=== PATIENT | male | born 1990 | race Caucasian/White ===

== ENCOUNTER 2017-10-13 15:12 | Emergency (ER) | payer MEDICAID ==
[~2017-10-13] VITALS: Ht 175.3 cm; Wt 81.8 kg
[~2017-10-13 15:12] MED LIST: ATARAX 10MG10 MG/TAB PO; ATARAX 25MG25 MG/TAB PO; BENADRYL25 M2 PO; BENZOTROPINE PO; CEPHALEXIN500 M1 PO; COGENTIN .0.5 MG/TAB PO; COGENTIN 1MG1 MG/TAB PO; DESYREL 50MG50 MG PO; HALDOL .5M0.5 MG/TAB IM; HALDOL 5MG T5 MG/TAB PO; K-DUR 10 MEQ T10 MEQ PO; K-DUR20 MEQ PO; LATUDA20 MG PO; MELATONIN1 MG PO; NO HOME MEDICATIONS; SEROQUEL XR150 MG PO; ZYPREXA 5MG5 MG PO
[2017-10-13 15:13] VITALS: BP 131/85; TEMP 98.7
[2017-10-13] MEDS ORDERED: HALDOL DEC100 MG/1 M IM (15:16)
[2017-10-13] MEDS ORDERED: ABILIFY 15MG TA15 MG PO (15:18)
[2017-10-13 16:47] VITALS: PULSE 84
== END 2017-10-13 16:48 | disposition home or self-care (01) ==
LOC: COL.ER 15:12
DX: H92.03 Otalgia, bilateral (principal); F20.0 Paranoid schizophrenia; F90.9 Attention-deficit hyperactivity disorder, unspecified type; F84.5 Asperger's syndrome; F17.210 Nicotine dependence, cigarettes, uncomplicated

== ENCOUNTER 2017-10-24 10:33 | Emergency (ER) | payer MEDICAID ==
[~2017-10-24] VITALS: Ht 175.3 cm; Wt 71.8 kg
[~2017-10-24 10:33] MED LIST changes: +ABILIFY 15MG TA15 MG PO; +HALDOL DEC100 MG/1 M IM
[2017-10-24 10:38] VITALS: BP 126/87; TEMP 97
[2017-10-24 11:24] VITALS: PULSE 76
== END 2017-10-24 11:16 | disposition home or self-care (01) ==
LOC: COL.ER 10:33
DX: K62.89 Other specified diseases of anus and rectum (principal); F20.9 Schizophrenia, unspecified; F84.5 Asperger's syndrome; F90.9 Attention-deficit hyperactivity disorder, unspecified type

== ENCOUNTER 2017-11-03 17:15 | Emergency (ER) | payer MEDICAID ==
[~2017-11-03] VITALS: Ht 180.3 cm; Wt 70.5 kg
[2017-11-03 17:21] VITALS: BP 105/77; PULSE 89; TEMP 98.6
[2017-11-03] MEDS ORDERED: AMOXICILLIN 50500 MG PO (17:48)
== END 2017-11-03 18:10 | disposition home or self-care (01) ==
LOC: COL.ER 17:15
DX: J34.89 Other specified disorders of nose and nasal sinuses (principal)

== ENCOUNTER 2017-11-05 16:32 | Emergency (ER) | payer MEDICAID ==
[~2017-11-05 16:32] MED LIST changes: +AMOXICILLIN 50500 MG PO
[2017-11-05 17:24] VITALS: BP 128/75; PULSE 68; TEMP 98
== END 2017-11-05 17:27 | disposition home or self-care (01) ==
LOC: COL.ER 16:32
DX: F15.10 Other stimulant abuse, uncomplicated (principal); F29 Unspecified psychosis not due to a substance or known physiological condition; F20.9 Schizophrenia, unspecified; R09.89 Other specified symptoms and signs involving the circulatory and respiratory systems

== ENCOUNTER 2017-11-09 11:20 | Emergency (ER) | payer MEDICAID ==
[~2017-11-09] VITALS: Ht 175.3 cm; Wt 70.9 kg
[2017-11-09 13:57] VITALS: BP 137/80; PULSE 66; TEMP 97.8
== END 2017-11-09 13:45 | disposition home or self-care (01) ==
LOC: COL.ER 11:20
DX: M25.571 Pain in right ankle and joints of right foot (principal); F20.9 Schizophrenia, unspecified; X58.XXXA Exposure to other specified factors, initial encounter

== ENCOUNTER 2017-11-14 14:02 | Emergency (ER) | payer MEDICAID ==
[~2017-11-14] VITALS: Ht 175.3 cm; Wt 70.9 kg
[2017-11-14 14:33] LABS: COLLECTION METHOD CLEAN CATCH
[2017-11-14 14:46] LABS: BASO # 0.1 (0.0-0.2); BASO % 0.8 % (0.0-2.0); EOS # 0.2 (0.0-0.7); GRAN # 5.7 (1.4-6.5); GRAN % 59.7 % (42.2-75.2); HEMATOCRIT 44.7 % (42.0-52.0); HEMOGLOBIN 15.1 g/dl (13.5-18.0); LYMPH # 2.6 (1.2-3.4); LYMPH % 26.9 % (20.0-51.0); MEAN CELL VOLUME 84 fl (80.0-100.0); MEAN CORPUSCULAR HEMOGLOBIN 28 pg (27.0-31.0); MEAN CORPUSCULAR HGB CONC 34 g/dl (33.0-37.0); MEAN PLATELET VOLUME 10.3 fl (7.4-10.4); MONO % 10.3 % (1.7-9.3); PLATELET COUNT 229 K/mm3 (130-400); RED BLOOD COUNT 5.31 M/mm3 (4.20-5.60); REDCELL DISTRIBUTION WIDTH-CV 12.9 % (11.5-14.5)
[2017-11-14 14:50] LABS: BUDDING YEAST Present /hpf; PH 7 (5-8); SQUAMOUS EPITHELIAL None Seen /hpf; URINE APPEARANCE Cloudy; URINE BACTERIA None Seen /hpf; URINE BILIRUBIN Negative (NEGATIVE); URINE BLOOD Negative (NEGATIVE); URINE COLOR Yellow; URINE GLUCOSE Negative (NEGATIVE); URINE KETONE Negative (NEGATIVE); URINE LEUKOCYTE ESTERASE Negative (NEGATIVE); URINE NITRATE Negative (NEGATIVE); URINE PROTEIN(semi-quant) Negative (NEGATIVE); URINE RBC 0-2 /hpf; URINE UROBILINOGEN >=4.0 mg/dL (NEGATIVE)
[2017-11-14 14:52] LABS: TRICYCLIC ANTIDEPRESS URINE NEGATIVE
[2017-11-14 15:05] LABS: ALANINE AMINOTRANSFERASE 39 U/L (21-72); ALBUMIN 4.5 gm/dL (3.5-5.0); ALKALINE PHOSPHATASE 98 U/L (50-136); ANION GAP 12 mmol/L (7-16); AST,SGOT 30 U/L (15-37); BILIRUBIN,TOTAL 1.3 mg/dL (0.0-1.0); BLOOD UREA NITROGEN 12 mg/dL (9-20); CALCIUM 9.2 mg/dL (8.4-10.2); CARBON DIOXIDE 27 mmol/L (22-30); CHLORIDE 104 mmol/L (98-107); CREATININE, serum 0.83 mg/dL (0.66-1.25); GLUCOSE 100 mg/dL (74-106); POTASSIUM 3.4 mmol/L (3.4-5.0); SODIUM 144 mmol/L (137-145); TOTAL PROTEIN 7.4 gm/dL (6.4-8.2)
[2017-11-14 15:12] LABS: ACETAMINOPHEN < 10 ug/mL (10-30); ALCOHOL(ethanol),MEDICAL < 10 mg/dL; SALICYLATE < 1.0 mg/dL
[2017-11-15 19:17] VITALS: BP 132/62; PULSE 86; TEMP 97.8
== END 2017-11-15 18:55 ==
LOC: COL.ER 14:02
PROVIDERS: Nurse Practitioner
DX: F41.9 Anxiety disorder, unspecified (principal); F20.9 Schizophrenia, unspecified; F84.5 Asperger's syndrome; F12.90 Cannabis use, unspecified, uncomplicated; F17.210 Nicotine dependence, cigarettes, uncomplicated

== ENCOUNTER 2018-04-04 14:58 | Emergency (ER) | payer MEDICAID ==
[~2018-04-04] VITALS: Ht 172.7 cm; Wt 69.5 kg
[2018-04-04 15:01] VITALS: BP 125/76; PULSE 100; TEMP 98.4
[2018-04-04 15:38] LABS: COLLECTION METHOD CLEAN CATCH
[2018-04-04 15:42] LABS: BASO # 0.1 (0.0-0.2); BASO % 0.6 % (0.0-2.0); EOS # 0.2 (0.0-0.7); EOS % 1.9 % (0-4.0); GRAN # 4.9 (1.4-6.5); GRAN % 56.6 % (42.2-75.2); HEMATOCRIT 43.7 % (42.0-52.0); HEMOGLOBIN 15.1 g/dl (13.5-18.0); LYMPH # 2.7 (1.2-3.4); MEAN CELL VOLUME 82 fl (80.0-100.0); MEAN CORPUSCULAR HEMOGLOBIN 28 pg (27.0-31.0); MEAN CORPUSCULAR HGB CONC 35 g/dl (33.0-37.0); MEAN PLATELET VOLUME 9.7 fl (7.4-10.4); MONO # 0.8 (0.1-0.6); MONO % 9.4 % (1.7-9.3); PLATELET COUNT 191 K/mm3 (130-400); RED BLOOD COUNT 5.31 M/mm3 (4.20-5.60); REDCELL DISTRIBUTION WIDTH-CV 12.4 % (11.5-14.5)
[2018-04-04 15:44] LABS: MUCOUS Present /lpf; PH 5 (5-8); SQUAMOUS EPITHELIAL None Seen /hpf; URINE APPEARANCE Clear; URINE BACTERIA None Seen /hpf; URINE BILIRUBIN Negative (NEGATIVE); URINE BLOOD Negative (NEGATIVE); URINE COLOR Yellow; URINE GLUCOSE Negative (NEGATIVE); URINE KETONE Negative (NEGATIVE); URINE LEUKOCYTE ESTERASE Negative (NEGATIVE); URINE NITRATE Negative (NEGATIVE); URINE PROTEIN(semi-quant) Negative (NEGATIVE); URINE RBC 0-2 /hpf; URINE UROBILINOGEN Negative (NEGATIVE)
[2018-04-04 15:55] LABS: ALANINE AMINOTRANSFERASE 22 U/L (21-72); ALBUMIN 4.5 gm/dL (3.5-5.0); ALKALINE PHOSPHATASE 74 U/L (50-136); ANION GAP 11 mmol/L (7-16); AST,SGOT 17 U/L (15-37); BLOOD UREA NITROGEN 8 mg/dL (9-20); CALCIUM 9.1 mg/dL (8.4-10.2); CARBON DIOXIDE 29 mmol/L (22-30); CHLORIDE 99 mmol/L (98-107); CREATININE, serum 0.81 mg/dL (0.66-1.25); GLUCOSE 91 mg/dL (74-106); POTASSIUM 3.1 mmol/L (3.4-5.0); SODIUM 139 mmol/L (137-145); TOTAL PROTEIN 7.4 gm/dL (6.4-8.2)
[2018-04-04 16:01] LABS: ACETAMINOPHEN < 10 ug/mL (10-30); ALCOHOL(ethanol),MEDICAL < 10 mg/dL; SALICYLATE < 1.0 mg/dL
[2018-04-04 16:03] LABS: TRICYCLIC ANTIDEPRESS URINE NEGATIVE
== END 2018-04-04 18:10 | disposition home or self-care (01) ==
LOC: COL.ER 14:58
PROVIDERS: Emergency Medicine
DX: F22 Delusional disorders (principal); F15.10 Other stimulant abuse, uncomplicated

== ENCOUNTER 2018-05-21 16:02 | Emergency (ER) | payer MEDICAID ==
[~2018-05-21] VITALS: Ht 172.7 cm; Wt 69.5 kg
[2018-05-21 17:04] LABS: COLLECTION METHOD CLEAN CATCH
[2018-05-21 17:13] LABS: GRANULAR CAST >12 /lpf; HYALINE CAST >12 /lpf; MUCOUS Present /lpf; PH 5 (5-8); SQUAMOUS EPITHELIAL 0-2 /hpf; URINE APPEARANCE Clear; URINE BACTERIA None Seen /hpf; URINE BILIRUBIN Negative (NEGATIVE); URINE BLOOD Negative (NEGATIVE); URINE COLOR Amber; URINE GLUCOSE Negative (NEGATIVE); URINE KETONE Negative (NEGATIVE); URINE LEUKOCYTE ESTERASE Negative (NEGATIVE); URINE NITRATE Negative (NEGATIVE); URINE PROTEIN(semi-quant) Negative (NEGATIVE); URINE RBC 0-2 /hpf
[2018-05-21 17:17] LABS: TRICYCLIC ANTIDEPRESS URINE NEGATIVE
[2018-05-21 17:24] LABS: BASO # 0.1 (0.0-0.2); BASO % 0.4 % (0.0-2.0); EOS # 0.2 (0.0-0.7); EOS % 1.4 % (0-4.0); GRAN # 9.5 (1.4-6.5); GRAN % 68.7 % (42.2-75.2); HEMATOCRIT 46.4 % (42.0-52.0); LYMPH # 2.7 (1.2-3.4); LYMPH % 19.3 % (20.0-51.0); MEAN CELL VOLUME 82 fl (80.0-100.0); MEAN CORPUSCULAR HEMOGLOBIN 28 pg (27.0-31.0); MEAN CORPUSCULAR HGB CONC 35 g/dl (33.0-37.0); MEAN PLATELET VOLUME 10.1 fl (7.4-10.4); MONO # 1.3 (0.1-0.6); MONO % 9.1 % (1.7-9.3); PLATELET COUNT 209 K/mm3 (130-400); RED BLOOD COUNT 5.63 M/mm3 (4.20-5.60); REDCELL DISTRIBUTION WIDTH-CV 12.9 % (11.5-14.5)
[2018-05-21 17:35] LABS: ALANINE AMINOTRANSFERASE 36 U/L (21-72); ALBUMIN 4.5 gm/dL (3.5-5.0); ALKALINE PHOSPHATASE 87 U/L (50-136); ANION GAP 13 mmol/L (7-16); AST,SGOT 24 U/L (15-37); BILIRUBIN,TOTAL 1.8 mg/dL (0.0-1.0); BLOOD UREA NITROGEN 20 mg/dL (9-20); CALCIUM 9.4 mg/dL (8.4-10.2); CARBON DIOXIDE 25 mmol/L (22-30); CHLORIDE 100 mmol/L (98-107); CREATININE, serum 1.07 mg/dL (0.66-1.25); GLUCOSE 82 mg/dL (74-106); POTASSIUM 3.8 mmol/L (3.4-5.0); SODIUM 138 mmol/L (137-145); TOTAL PROTEIN 7.5 gm/dL (6.4-8.2)
[2018-05-21 17:46] LABS: ACETAMINOPHEN < 10 ug/mL (10-30); ALCOHOL(ethanol),MEDICAL < 10 mg/dL; SALICYLATE < 1.0 mg/dL
[2018-05-21] MEDS ORDERED: ZYPREXA2.5 MG PO (22:50)
[2018-05-21] MEDS ORDERED: TEGRETOL 1100 MG/TAB PO (22:50)
[2018-05-22 15:56] VITALS: TEMP 97.9
[2018-05-22 17:52] VITALS: BP 99/60; PULSE 90
== END 2018-05-22 17:52 ==
LOC: COL.ER 16:02
PROVIDERS: Emergency Medicine
DX: F20.9 Schizophrenia, unspecified (principal); F15.10 Other stimulant abuse, uncomplicated; L55.9 Sunburn, unspecified; F90.9 Attention-deficit hyperactivity disorder, unspecified type; F17.210 Nicotine dependence, cigarettes, uncomplicated

== ENCOUNTER 2018-07-19 00:51 | Emergency (ER) | payer MEDICAID ==
[~2018-07-19] VITALS: Ht 172.7 cm; Wt 72.7 kg
[~2018-07-19 00:51] MED LIST changes: +TEGRETOL 1100 MG/TAB PO; +ZYPREXA2.5 MG PO
[2018-07-19 00:56] VITALS: TEMP 98.5
[2018-07-19] MEDS ORDERED: ZYPREXA20 MG PO ×2 (01:04)
[2018-07-19] MEDS ORDERED: TRILEPTAL 150M150 MG PO (01:05)
[2018-07-19] MEDS ORDERED: ZYPREXA10 MG PO (01:06)
[2018-07-19] MEDS ORDERED: BENADRYL25 M2 PO (01:07)
[2018-07-19] MEDS ORDERED: REVIA 50MG TABL50 MG PO (01:08)
[2018-07-19 01:29] LABS: COLLECTION METHOD CLEAN CATCH
[2018-07-19 01:30] LABS: BASO # 0.1 (0.0-0.2); BASO % 0.5 % (0.0-2.0); EOS # 0.1 (0.0-0.7); EOS % 0.8 % (0-4.0); GRAN # 10.1 (1.4-6.5); GRAN % 76.3 % (42.2-75.2); HEMATOCRIT 49.2 % (42.0-52.0); HEMOGLOBIN 17.1 g/dl (13.5-18.0); LYMPH % 14.8 % (20.0-51.0); MEAN CELL VOLUME 82 fl (80.0-100.0); MEAN CORPUSCULAR HEMOGLOBIN 29 pg (27.0-31.0); MEAN CORPUSCULAR HGB CONC 35 g/dl (33.0-37.0); MEAN PLATELET VOLUME 9.8 fl (7.4-10.4); MONO # 0.9 (0.1-0.6); MONO % 6.8 % (1.7-9.3); PLATELET COUNT 224 K/mm3 (130-400); RED BLOOD COUNT 5.98 M/mm3 (4.20-5.60); REDCELL DISTRIBUTION WIDTH-CV 12.2 % (11.5-14.5)
[2018-07-19 01:39] LABS: MUCOUS Present /lpf; PH 5 (5-8); SQUAMOUS EPITHELIAL None Seen /hpf; URINE APPEARANCE Hazy; URINE BACTERIA None Seen /hpf; URINE BILIRUBIN Negative (NEGATIVE); URINE BLOOD Negative (NEGATIVE); URINE COLOR Amber; URINE GLUCOSE Negative (NEGATIVE); URINE KETONE Trace (NEGATIVE); URINE LEUKOCYTE ESTERASE Negative (NEGATIVE); URINE NITRATE Negative (NEGATIVE); URINE PROTEIN(semi-quant) 1+ (NEGATIVE)
[2018-07-19 01:48] LABS: ALBUMIN 4.9 gm/dL (3.5-5.0); BILIRUBIN,TOTAL 1.6 mg/dL (0.0-1.0); CALCIUM 10.1 mg/dL (8.4-10.2); CREATININE, serum 0.86 mg/dL (0.66-1.25); POTASSIUM 3.7 mmol/L (3.4-5.0); TOTAL PROTEIN 8.4 gm/dL (6.4-8.2)
[2018-07-19 01:49] LABS: C-REACTIVE PROTEIN 0.5 mg/dL (0.0-0.9)
[2018-07-19 04:33] VITALS: BP 94/67; PULSE 87
== END 2018-07-19 04:33 | disposition home or self-care (01) ==
LOC: COL.ER 00:51
PROVIDERS: Physician Assistant
DX: K59.00 Constipation, unspecified (principal); K31.84 Gastroparesis; F17.210 Nicotine dependence, cigarettes, uncomplicated; F90.9 Attention-deficit hyperactivity disorder, unspecified type; F84.5 Asperger's syndrome; F25.9 Schizoaffective disorder, unspecified
CPT/HCPCS: Q9967

== ENCOUNTER 2018-08-04 23:03 | Emergency (ER) | payer MEDICAID ==
[~2018-08-04] VITALS: Ht 172.7 cm; Wt 70.9 kg
[~2018-08-04 23:03] MED LIST changes: +REVIA 50MG TABL50 MG PO; +TRILEPTAL 150M150 MG PO; +ZYPREXA10 MG PO; +ZYPREXA20 MG PO
[2018-08-04 23:37] LABS: COLLECTION METHOD CLEAN CATCH
[2018-08-04 23:40] LABS: BASO % 0.5 % (0.0-2.0); EOS # 0.1 (0.0-0.7); EOS % 1.6 % (0-4.0); GRAN % 58.9 % (42.2-75.2); HEMOGLOBIN 15.7 g/dl (13.5-18.0); LYMPH # 2.6 (1.2-3.4); LYMPH % 30.1 % (20.0-51.0); MEAN CELL VOLUME 83 fl (80.0-100.0); MEAN CORPUSCULAR HEMOGLOBIN 29 pg (27.0-31.0); MEAN CORPUSCULAR HGB CONC 35 g/dl (33.0-37.0); MEAN PLATELET VOLUME 9.8 fl (7.4-10.4); MONO # 0.7 (0.1-0.6); MONO % 8.2 % (1.7-9.3); PLATELET COUNT 199 K/mm3 (130-400); RED BLOOD COUNT 5.44 M/mm3 (4.20-5.60); REDCELL DISTRIBUTION WIDTH-CV 12.2 % (11.5-14.5)
[2018-08-04 23:51] LABS: ALANINE AMINOTRANSFERASE 32 U/L (21-72); ALBUMIN 4.8 gm/dL (3.5-5.0); ALKALINE PHOSPHATASE 79 U/L (50-136); ANION GAP 8 mmol/L (7-16); AST,SGOT 21 U/L (15-37); BILIRUBIN,TOTAL 1.1 mg/dL (0.0-1.0); BLOOD UREA NITROGEN 8 mg/dL (9-20); CALCIUM 9.4 mg/dL (8.4-10.2); CARBON DIOXIDE 31 mmol/L (22-30); CHLORIDE 98 mmol/L (98-107); CREATININE, serum 0.88 mg/dL (0.66-1.25); GLUCOSE 91 mg/dL (74-106); SODIUM 137 mmol/L (137-145); TOTAL PROTEIN 8.1 gm/dL (6.4-8.2)
[2018-08-04 23:52] LABS: TRICYCLIC ANTIDEPRESS URINE NEGATIVE
[2018-08-04 23:53] LABS: ACETAMINOPHEN < 10 ug/mL (10-30); ALCOHOL(ethanol),MEDICAL < 10 mg/dL; POTASSIUM 2.8 mmol/L (3.4-5.0); SALICYLATE < 1.0 mg/dL
[2018-08-04 23:55] LABS: MUCOUS Present /lpf; PH 5 (5-8); SQUAMOUS EPITHELIAL None Seen /hpf; URINE APPEARANCE Clear; URINE BACTERIA None Seen /hpf; URINE BILIRUBIN Negative (NEGATIVE); URINE BLOOD Negative (NEGATIVE); URINE COLOR Yellow; URINE GLUCOSE Negative (NEGATIVE); URINE KETONE Negative (NEGATIVE); URINE LEUKOCYTE ESTERASE Negative (NEGATIVE); URINE NITRATE Negative (NEGATIVE); URINE PROTEIN(semi-quant) Negative (NEGATIVE); URINE RBC 0-2 /hpf; URINE UROBILINOGEN Negative (NEGATIVE)
[2018-08-05 08:30] VITALS: TEMP 97.2
[2018-08-05 19:25] LABS: TRICYCLIC ANTIDEPRESS URINE NEGATIVE
[2018-08-06 11:39] LABS: CALCIUM 9.6 mg/dL (8.4-10.2); CREATININE, serum 0.88 mg/dL (0.66-1.25); POTASSIUM 4.4 mmol/L (3.4-5.0)
[2018-08-06 13:40] VITALS: BP 100/54; PULSE 81
== END 2018-08-06 13:57 ==
LOC: COL.ER 23:03
PROVIDERS: Emergency Medicine
DX: F22 Delusional disorders (principal); F15.10 Other stimulant abuse, uncomplicated

== ENCOUNTER 2018-09-18 15:18 | Emergency (ER) | payer MEDICAID ==
[~2018-09-18] VITALS: Ht 175.3 cm; Wt 68.2 kg
[2018-09-18 16:42] LABS: BASO % 0.4 % (0.0-2.0); GRAN # 7.7 (1.4-6.5); GRAN % 73.4 % (42.2-75.2); HEMATOCRIT 45.3 % (42.0-52.0); HEMOGLOBIN 15.6 g/dl (13.5-18.0); LYMPH # 1.2 (1.2-3.4); MEAN CELL VOLUME 82 fl (80.0-100.0); MEAN CORPUSCULAR HEMOGLOBIN 28 pg (27.0-31.0); MEAN CORPUSCULAR HGB CONC 34 g/dl (33.0-37.0); MEAN PLATELET VOLUME 10.4 fl (7.4-10.4); MONO # 1.5 (0.1-0.6); MONO % 14.7 % (1.7-9.3); PLATELET COUNT 147 K/mm3 (130-400); RED BLOOD COUNT 5.55 M/mm3 (4.20-5.60); REDCELL DISTRIBUTION WIDTH-CV 12.5 % (11.5-14.5)
[2018-09-18 16:44] LABS: COLLECTION METHOD CLEAN CATCH
[2018-09-18 16:54] LABS: MUCOUS Present /lpf; PH 5 (5-8); SQUAMOUS EPITHELIAL 0-2 /hpf; URINE APPEARANCE Hazy; URINE BACTERIA None Seen /hpf; URINE BILIRUBIN Negative (NEGATIVE); URINE BLOOD Negative (NEGATIVE); URINE COLOR Yellow; URINE GLUCOSE Negative (NEGATIVE); URINE KETONE Negative (NEGATIVE); URINE LEUKOCYTE ESTERASE Negative (NEGATIVE); URINE NITRATE Negative (NEGATIVE); URINE PROTEIN(semi-quant) 1+ (NEGATIVE); URINE RBC 0-2 /hpf; URINE UROBILINOGEN Negative (NEGATIVE)
[2018-09-18 16:55] LABS: ACETAMINOPHEN < 10 ug/mL (10-30); ALANINE AMINOTRANSFERASE 22 U/L (21-72); ALBUMIN 4.7 gm/dL (3.5-5.0); ALCOHOL(ethanol),MEDICAL < 10 mg/dL; ALKALINE PHOSPHATASE 82 U/L (50-136); ANION GAP 13 mmol/L (7-16); AST,SGOT 22 U/L (15-37); BILIRUBIN,TOTAL 0.8 mg/dL (0.0-1.0); BLOOD UREA NITROGEN 11 mg/dL (9-20); C-REACTIVE PROTEIN 5.8 mg/dL (0.0-0.9); CALCIUM 9.3 mg/dL (8.4-10.2); CARBON DIOXIDE 25 mmol/L (22-30); CHLORIDE 98 mmol/L (98-107); CREATININE, serum 0.95 mg/dL (0.66-1.25); GLUCOSE 88 mg/dL (74-106); POTASSIUM 3.4 mmol/L (3.4-5.0); SALICYLATE < 1.0 mg/dL; SODIUM 137 mmol/L (137-145); TOTAL PROTEIN 7.8 gm/dL (6.4-8.2)
[2018-09-18 16:58] LABS: CREATINE KINASE 57 U/L (55-170)
[2018-09-18 16:59] LABS: TRICYCLIC ANTIDEPRESS URINE NEGATIVE
[2018-09-18 20:20] VITALS: BP 125/81; PULSE 100; TEMP 98.8
== END 2018-09-18 20:20 | disposition home or self-care (01) ==
LOC: COL.ER 15:18
PROVIDERS: Emergency Medicine
DX: F29 Unspecified psychosis not due to a substance or known physiological condition (principal); F15.10 Other stimulant abuse, uncomplicated; F20.9 Schizophrenia, unspecified
CPT/HCPCS: J7030

== ENCOUNTER 2018-09-22 16:02 | Emergency (ER) | payer MEDICAID ==
[~2018-09-22] VITALS: Ht 175.3 cm; Wt 65.9 kg
[2018-09-22 16:24] VITALS: BP 133/83; PULSE 111; TEMP 98.5
[2018-09-22 17:20] LABS: COLLECTION METHOD CLEAN CATCH
[2018-09-22 17:26] LABS: HEMATOCRIT 46.9 % (42.0-52.0); HEMOGLOBIN 15.7 g/dl (13.5-18.0); MEAN CELL VOLUME 83 fl (80.0-100.0); MEAN CORPUSCULAR HEMOGLOBIN 28 pg (27.0-31.0); MEAN CORPUSCULAR HGB CONC 34 g/dl (33.0-37.0); MEAN PLATELET VOLUME 9.4 fl (7.4-10.4); PLATELET COUNT 230 K/mm3 (130-400); RED BLOOD COUNT 5.67 M/mm3 (4.20-5.60); REDCELL DISTRIBUTION WIDTH-CV 12.3 % (11.5-14.5)
[2018-09-22 17:28] LABS: MUCOUS Present /lpf; PH 5 (5-8); SQUAMOUS EPITHELIAL 0-2 /hpf; URINE APPEARANCE Clear; URINE BACTERIA None Seen /hpf; URINE BILIRUBIN Negative (NEGATIVE); URINE BLOOD Negative (NEGATIVE); URINE COLOR Yellow; URINE GLUCOSE Negative (NEGATIVE); URINE KETONE Negative (NEGATIVE); URINE LEUKOCYTE ESTERASE Negative (NEGATIVE); URINE NITRATE Negative (NEGATIVE); URINE PROTEIN(semi-quant) Negative (NEGATIVE); URINE RBC 0-2 /hpf; URINE UROBILINOGEN Negative (NEGATIVE)
[2018-09-22 17:37] LABS: ALANINE AMINOTRANSFERASE 26 U/L (21-72); ALBUMIN 4.7 gm/dL (3.5-5.0); ALKALINE PHOSPHATASE 72 U/L (50-136); ANION GAP 11 mmol/L (7-16); AST,SGOT 30 U/L (15-37); BLOOD UREA NITROGEN 7 mg/dL (9-20); CALCIUM 9.4 mg/dL (8.4-10.2); CARBON DIOXIDE 31 mmol/L (22-30); CHLORIDE 98 mmol/L (98-107); GLUCOSE 98 mg/dL (74-106); POTASSIUM 3.2 mmol/L (3.4-5.0); SODIUM 140 mmol/L (137-145); TOTAL PROTEIN 8.5 gm/dL (6.4-8.2)
[2018-09-22 17:40] LABS: ACETAMINOPHEN < 10 ug/mL (10-30); ALCOHOL(ethanol),MEDICAL < 10 mg/dL; SALICYLATE < 1.0 mg/dL; TRICYCLIC ANTIDEPRESS URINE NEGATIVE
[2018-09-22 19:07] LABS: BAND 2 % (0-10); LYMPHOCYTE 22 % (20.0-51.0); NEUTROPHILS 67 % (42.0-75.2); PLATELET ESTIMATE NORMAL (NORMAL)
[2018-09-22] MEDS ORDERED: ZOVIRAX400 MG PO (21:23)
== END 2018-09-22 21:49 | disposition home or self-care (01) ==
LOC: COL.ER 16:02
PROVIDERS: Family Medicine
DX: F29 Unspecified psychosis not due to a substance or known physiological condition (principal); F15.10 Other stimulant abuse, uncomplicated; F20.9 Schizophrenia, unspecified; F12.90 Cannabis use, unspecified, uncomplicated; F17.210 Nicotine dependence, cigarettes, uncomplicated; Z91.14 Patient's other noncompliance with medication regimen

== ENCOUNTER 2018-09-26 01:02 | Emergency (ER) | payer MEDICAID ==
[~2018-09-26] VITALS: Ht 175.3 cm; Wt 68.2 kg
[~2018-09-26 01:02] MED LIST changes: +ZOVIRAX400 MG PO
[2018-09-26 01:09] VITALS: TEMP 97.7
[2018-09-26] MEDS ORDERED: AMOXICILLIN 50500 MG PO (01:38)
[2018-09-26 01:58] VITALS: BP 124/86; PULSE 98
[2018-09-26] MEDS ORDERED: AMOXICILLIN875 MG PO (09:55)
== END 2018-09-26 02:05 | disposition home or self-care (01) ==
LOC: COL.ER 01:02
DX: K02.9 Dental caries, unspecified (principal); F41.9 Anxiety disorder, unspecified; F90.9 Attention-deficit hyperactivity disorder, unspecified type; F20.9 Schizophrenia, unspecified; F17.210 Nicotine dependence, cigarettes, uncomplicated

== ENCOUNTER 2018-09-26 09:24 | Emergency (ER) | payer MEDICAID ==
[~2018-09-26] VITALS: Ht 172.7 cm; Wt 66.8 kg
[2018-09-26 09:28] VITALS: BP 142/78; TEMP 97.7
[2018-09-26] MEDS ORDERED: AMOXICILLIN875 MG PO (09:55)
[2018-09-26 10:16] VITALS: PULSE 98
== END 2018-09-26 10:18 | disposition home or self-care (01) ==
LOC: COL.ER 09:24
DX: A41.9 Sepsis, unspecified organism (principal); K08.89 Other specified disorders of teeth and supporting structures; F20.9 Schizophrenia, unspecified; F15.20 Other stimulant dependence, uncomplicated; F17.210 Nicotine dependence, cigarettes, uncomplicated; F12.90 Cannabis use, unspecified, uncomplicated; F84.5 Asperger's syndrome